=== PATIENT | male | born 1995 | race Caucasian/White ===

== ENCOUNTER 2018-07-20 06:43 | Emergency (ER) | payer SELFPAY, OTHER ==
[2018-07-20] MEDS: KETOROLAC 60 MG INJ IM (07:20)
[2018-07-20] MEDS: DEXAMETHASONE 10 MG/ML 1 ML INJ IM (07:20)
[2018-07-20] MEDS: CYCLOBENZAPRINE 10 MG TAB PO (07:20)
[2018-07-20 07:34] LABS: URINE BLOOD (Dip) POC Negative (NEGATIVE); URINE GLUCOSE (Dip) POC Negative (NEGATIVE); URINE KETONES (Dip) POC Negative (NEGATIVE); URINE LEUKOCYTE EST (Dip) POC Negative (NEGATIVE); URINE NITRITE (Dip) POC Negative (NEGATIVE); URINE TOTAL PROTEIN POC Negative (NEGATIVE)
== END 2018-07-20 08:15 | disposition home or self-care (01) ==
LOC: FTE 06:43
DX: S29.012A Strain of muscle and tendon of back wall of thorax, initial encounter (principal); X58.XXXA Exposure to other specified factors, initial encounter; Y92.89 Other specified places as the place of occurrence of the external cause
CPT/HCPCS: 81003; 96372; 99284-25